=== PATIENT | female | born 1980 | race Caucasian/White ===

== ENCOUNTER → 2017-08-15 | Outpatient (CLI) | payer SELFPAY ==
[2017-08-15 15:46] LABS: HCG, SERUM QUANTITATIVE 15 MIU/ML
== END ==
LOC: M LAB 14:19
DX: N91.2 Amenorrhea, unspecified (principal)
CPT/HCPCS: 84702

== ENCOUNTER → 2017-08-23 | Outpatient (CLI) | payer SELFPAY ==
[2017-08-23 12:09] LABS: HEMATOCRIT 37.6 % (36.0-47.0); HEMOGLOBIN 12.1 g/dl (12.0-15.5); MEAN CORPUSCULAR HEMOGLOBIN 27.6 pg (27.0-33.0); MEAN CORPUSCULAR HGB CONC 32.2 g/dl (32.0-36.5); MEAN CORPUSCULAR VOLUME 85.6 fl (80.0-96.0); PLATELET COUNT, AUTOMATED 349 10^3/uL (150-450); RED BLOOD COUNT 4.39 10^6/uL (4.00-5.40); RED CELL DISTRIBUTION WIDTH 14.2 % (11.5-14.5); WHITE BLOOD COUNT 9.8 10^3/uL (4.0-10.0)
[2017-08-23 12:11] LABS: APPEARANCE, URINE CLEAR (CLEAR); BACTERIA, URINE AUTO NEGATIVE (NEGATIVE); BILIRUBIN, URINE AUTO NEGATIVE (NEGATIVE); BLOOD, URINE BLOOD NEGATIVE (NEGATIVE); COLOR, URINE STRAW (YELLOW); GLUCOSE, URINE (UA) AUTO NEGATIVE (NEGATIVE); KETONE, URINE AUTO NEGATIVE (NEGATIVE); LEUKOCYTE ESTERASE, URINE AUTO NEGATIVE (NEGATIVE); NITRITE, URINE AUTO NEGATIVE (NEGATIVE); PROTEIN, URINE AUTO NEGATIVE (NEGATIVE); RBC, URINE AUTO 2 /HPF (0-3); SPECIFIC GRAVITY URINE AUTO 1.003 (1.002-1.035); SQUAMOUS EPITHELIAL CELL UR AU 1 /HPF (0-6); UROBILINOGEN, URINE AUTO 0.2 mg/dL (0.0-2.0); WBC, URINE AUTO 2 /HPF (0-3)
[2017-08-23 12:27] LABS: PROGESTERONE 19.9 NG/ML
[2017-08-23 12:37] LABS: AMPHETAMINES LEVEL URINE NEGATIVE (NEGATIVE); BARBITURATES URINE NEGATIVE (NEGATIVE); BENZODIAZEPINES URINE NEGATIVE (NEGATIVE); CANNABINOIDS URINE NEGATIVE (NEGATIVE); COCAINE METABOLITE URINE NEGATIVE (NEGATIVE); METHADONE URINE NEGATIVE (NEGATIVE); OPIATES URINE NEGATIVE (NEGATIVE); PHENCYCLIDINE URINE NEGATIVE (NEGATIVE)
[2017-08-24 10:53] LABS: RUBELLA IgG QUALITATIVE IMMUNE (IMMUNE)
[2017-08-24 10:59] LABS: HEPATITIS B SURFACE ANTIGEN NEGATIVE (NEGATIVE)
[2017-08-24 11:22] LABS: HIV 1&2 SCREEN CENTAUR NEGATIVE (NEGATIVE)
[2017-08-26 00:10] LABS: HERPES ZOSTER, VARICELLA IgG 2568 index (Immune >165)
[2017-08-26 00:10] LABS: LEAD BLOOD ADULT <1 ug/dL (0-19)
== END ==
LOC: M LAB 10:46
DX: Z32.01 Encounter for pregnancy test, result positive (principal)
CPT/HCPCS: 83655

== ENCOUNTER → 2017-09-08 | Outpatient (REF) | payer SELFPAY, OTHER ==
[2017-09-08 18:09] LABS: CHLAMYDIA DNA AMPLIFICATION NEGATIVE (NEGATIVE); GC DNA AMPLIFICATION NEGATIVE (NEGATIVE)
== END ==
LOC: M SFHCLERA 10:10
DX: R30.0 Dysuria (principal)

== ENCOUNTER → 2021-06-26 | Outpatient (CLI) | payer OTHER ==
[~2021-06-26] MED LIST: CALCTAB93 PO; IRONTAB3 PO; MAGNESIUM PO; OMEGA 3 PO; PRENTAB29 PO; ZINCLOZ9 PO
== END ==
LOC: M WHC 15:14
PROVIDERS: ATTEND Advanced Practice Midwife
DX: O09.529 Supervision of elderly multigravida, unspecified trimester (principal); Z53.9 Procedure and treatment not carried out, unspecified reason

== ENCOUNTER → 2021-07-07 | Outpatient (CLI) | payer SELFPAY | LOC: M WHC 14:21 | PROVIDERS: ATTEND Advanced Practice Midwife | DX: O09.529 Supervision of elderly multigravida, unspecified trimester (principal); Z3A.20 20 weeks gestation of pregnancy ==

== ENCOUNTER → 2021-07-09 | Outpatient (CLI) | payer SELFPAY ==
[2021-07-09 15:34] LABS: BASO % 0.2 % (0.0-1.0); EOS # 0.3 10^3/uL (0.0-0.5); EOS % 2.8 % (0.0-3.0); HEMATOCRIT 33.4 % (36.0-47.0); HEMOGLOBIN 10.8 g/dl (12.0-15.5); LYMPH # 1.6 10^3/uL (1.5-5.0); LYMPH % 14.7 % (24.0-44.0); MEAN CORPUSCULAR HEMOGLOBIN 28.2 pg (27.0-33.0); MEAN CORPUSCULAR HGB CONC 32.3 g/dl (32.0-36.5); MEAN CORPUSCULAR VOLUME 87.2 fl (80.0-96.0); MONO # 0.4 10^3/uL (0.0-0.8); MONO % 3.3 % (2.0-8.0); NEUTROPHILS # 8.6 10^3/uL (1.5-8.5); NEUTROPHILS % 78.5 % (36.0-66.0); PLATELET COUNT, AUTOMATED 247 10^3/uL (150-450); RED BLOOD COUNT 3.83 10^6/uL (4.00-5.40)
[2021-07-09 15:59] LABS: ALT/SGPT 29 U/L (12-78); BILIRUBIN,TOTAL 0.3 MG/DL (0.2-1.0); CREATININE FOR GFR 0.69 MG/DL (0.55-1.30); CREATININE,RANDOM URINE 20.9 MG/DL; GLOMERULAR FILTRATION RATE > 60.0 (>58); GLUCOSE CHALLENGE TEST 1 HOUR 99 MG/DL (LESS THAN 140); LDH LACTATE DEHYDROGENASE 153 U/L (84-246); TOTAL PROTEIN,RANDOM URINE 6.3 MG/DL (0.0-12.0); URIC ACID 4.4 MG/DL (2.6-6.0)
[2021-07-09 16:48] LABS: HEPATITIS C VIRUS ABY INDEX 0.1 INDEX (<0.8)
[2021-07-09 16:49] LABS: HIV 1&2 SCREEN CENTAUR NEGATIVE (NEGATIVE)
[2021-07-09 16:52] LABS: GC DNA AMPLIFICATION NEGATIVE (NEGATIVE)
== END ==
LOC: M PLALAB 09:38
PROVIDERS: ATTEND Advanced Practice Midwife
DX: O09.529 Supervision of elderly multigravida, unspecified trimester (principal); Z3A.00 Weeks of gestation of pregnancy not specified; O10.919 Unspecified pre-existing hypertension complicating pregnancy, unspecified trimester; O99.280 Endocrine, nutritional and metabolic diseases complicating pregnancy, unspecified trimester; E28.2 Polycystic ovarian syndrome

== ENCOUNTER → 2021-08-18 | Outpatient (CLI) | payer SELFPAY | LOC: M WHC 10:48 | PROVIDERS: ATTEND Specialist | DX: Z34.82 Encounter for supervision of other normal pregnancy, second trimester (principal); Z3A.26 26 weeks gestation of pregnancy; Z36.2 Encounter for other antenatal screening follow-up ==

== ENCOUNTER → 2021-08-27 | Outpatient (CLI) | payer SELFPAY ==
[2021-08-27 15:12] LABS: HEMOGLOBIN 10.5 g/dl (12.0-15.5); MEAN CORPUSCULAR HEMOGLOBIN 27.8 pg (27.0-33.0); MEAN CORPUSCULAR HGB CONC 31.8 g/dl (32.0-36.5); MEAN CORPUSCULAR VOLUME 87.3 fl (80.0-96.0); PLATELET COUNT, AUTOMATED 270 10^3/uL (150-450); RED BLOOD COUNT 3.78 10^6/uL (4.00-5.40)
[2021-08-27 16:42] LABS: GC DNA AMPLIFICATION NEGATIVE (NEGATIVE)
== END ==
LOC: M PLALAB 12:06
PROVIDERS: ATTEND Specialist
DX: O10.912 Unspecified pre-existing hypertension complicating pregnancy, second trimester (principal); O09.529 Supervision of elderly multigravida, unspecified trimester; Z3A.00 Weeks of gestation of pregnancy not specified

== ENCOUNTER → 2021-10-20 | Outpatient (REF) | payer OTHER ==
[~2021-10-20] MED LIST changes: +ECOT81TA5 PO; +LABE200T5 PO; +METF-817 PO; +PREN1TAB18 PO
== END ==
LOC: M PLALAB 14:36
PROVIDERS: ATTEND Specialist
DX: O10.913 Unspecified pre-existing hypertension complicating pregnancy, third trimester (principal); Z36.85 Encounter for antenatal screening for Streptococcus B

== ENCOUNTER → 2021-10-30 | Outpatient (CLI) | payer SELFPAY | LOC: M RAD 15:27 | PROVIDERS: ATTEND Specialist | DX: Z01.810 Encounter for preprocedural cardiovascular examination (principal) ==

== ENCOUNTER → 2021-11-01 | Outpatient (CLI) | payer SELFPAY | LOC: M LABSMTC 10:52 | PROVIDERS: ATTEND Anesthesiology | DX: Z01.818 Encounter for other preprocedural examination (principal); Z11.52 Encounter for screening for COVID-19 ==

== ENCOUNTER 2021-11-09 03:31 | Emergency (ER) | payer SELFPAY ==
[~2021-11-09] VITALS: Ht 175.3 cm; Wt 150.0 kg
[~2021-11-09 03:31] MED LIST changes: +IBUP80TA PO; +OXYC1TAB23 PO
[2021-11-09] MEDS ORDERED: ACET-897 PO (03:42)
[2021-11-09] MEDS ORDERED: METF-838 PO (03:42)
[2021-11-09] MEDS ORDERED: LIDOCAINE 1% MDV 20ML VIAL As Ordered ONE (04:49)
[2021-11-09] MEDS ORDERED: LIDOCAINE 1% MDV 20ML VIAL INJ ONE (04:55)
[2021-11-09] MEDS ORDERED: AMOX875T2 PO (06:06)
[2021-11-09] MEDS ORDERED: PERC5TAB12 PO (06:06)
[2021-11-09] MEDS ORDERED: AUGMENTIN 875 MG TAB PO ONE (06:10)
[2021-11-09 06:21] VITALS: BP 142/92
== END 2021-11-09 06:37 | disposition home or self-care (01) ==
LOC: M ED 03:31
DX: O90.0 Disruption of cesarean delivery wound (principal); Z48.817 Encounter for surgical aftercare following surgery on the skin and subcutaneous tissue; E11.9 Type 2 diabetes mellitus without complications; I10 Essential (primary) hypertension; J45.909 Unspecified asthma, uncomplicated; Z79.899 Other long term (current) drug therapy; Z91.89 Other specified personal risk factors, not elsewhere classified

== ENCOUNTER 2022-02-09 09:07 | Observation (INO) | payer SELFPAY ==
[~2022-02-09] VITALS: Ht 175.3 cm; Wt 148.7 kg
[~2022-02-09 09:07] MED LIST changes: +ACET-897 PO; +AMOX875T2 PO; +METF-838 PO; +PERC5TAB12 PO
[2022-02-09] MEDS ORDERED: LR 1,000 ML IV SCH ×2 (11:20→15:10)
[2022-02-09 12:30] VITALS: BP 142/77
[2022-02-09] MEDS ORDERED: LIDOCAINE 1% SDV 30ML VIAL As Ordered ONE (12:41)
[2022-02-09 13:01] LABS: BASO % 0.4 % (0.0-1.0); EOS # 0.4 10^3/uL (0.0-0.5); EOS % 3.6 % (0.0-3.0); HEMATOCRIT 39.5 % (36.0-47.0); HEMOGLOBIN 12.5 g/dl (12.0-15.5); LYMPH # 1.9 10^3/uL (1.5-5.0); LYMPH % 16.5 % (24.0-44.0); MEAN CORPUSCULAR HEMOGLOBIN 27.3 pg (27.0-33.0); MEAN CORPUSCULAR HGB CONC 31.6 g/dl (32.0-36.5); MEAN CORPUSCULAR VOLUME 86.2 fl (80.0-96.0); MONO # 0.6 10^3/uL (0.0-0.8); NEUTROPHILS # 8.4 10^3/uL (1.5-8.5); NEUTROPHILS % 74.2 % (36.0-66.0); PLATELET COUNT, AUTOMATED 300 10^3/uL (150-450); RED BLOOD COUNT 4.58 10^6/uL (4.00-5.40); WHITE BLOOD COUNT 11.3 10^3/uL (4.0-10.0)
[2022-02-09] MEDS ORDERED: LIDOCAINE 2% 100MG/5ML SDV (FOR ANES.) As Ordered ONE (13:04)
[2022-02-09] MEDS ORDERED: MIDAZOLAM INJ 2MG/2ML VIAL As Ordered ONE (13:04)
[2022-02-09] MEDS ORDERED: propofoL 200 MG/20 ML VIAL As Ordered ONE ×2 (13:04→14:42)
[2022-02-09] MEDS ORDERED: fentaNYL 100 MCG/2 ML INJECTION As Ordered ONE ×2 (13:04→15:08)
[2022-02-09] MEDS ORDERED: PRENTAB77 PO (13:07)
[2022-02-09] MEDS ORDERED: VITA200C39 PO (13:07)
[2022-02-09] MEDS ORDERED: HOME MED LIST COMPLETE! XX SCH (13:10)
[2022-02-09] MEDS ORDERED: CHLOROPROCAINE PRES. FREE 3% 20ML VIAL As Ordered ONE (13:17)
[2022-02-09 13:19] LABS: ALBUMIN 3.8 G/DL (3.2-5.2); ALKALINE PHOSPHATASE 85 U/L (46-116); ALT/SGPT 53 U/L (7.0-40); AST/SGOT 35 U/L (<34); BILIRUBIN,TOTAL 0.5 MG/DL (0.3-1.2); BLOOD UREA NITROGEN 16 MG/DL (9-23); CALCIUM LEVEL 9.8 MG/DL (8.5-10.1); CARBON DIOXIDE LEVEL 28 MMOL/L (20-31); CHLORIDE LEVEL 103 MMOL/L (98-107); CREATININE FOR GFR 0.77 MG/DL (0.55-1.30); GLOMERULAR FILTRATION RATE > 60.0 (>58); GLUCOSE, FASTING 93 MG/DL (60-100); POTASSIUM SERUM 4.2 MMOL/L (3.5-5.1); SODIUM LEVEL 139 MMOL/L (136-145); TOTAL PROTEIN 7.6 G/DL (5.7-8.2)
[2022-02-09] MEDS ORDERED: ceFAZolin 1GM VIAL As Ordered ONE (13:47)
[2022-02-09] MEDS: fentaNYL 100 MCG/2 ML INJECTION IV PRN ×2 (15:05→15:10)
[2022-02-09] MEDS ORDERED: KETOROLAC 30 MG/ML 1ML VIAL As Ordered ONE (15:05)
[2022-02-09] MEDS ORDERED: ONDANSETRON 4MG 2ML VIAL IV PRN (15:10)
[2022-02-09 15:50] VITALS: BP 139/65
[2022-02-09 16:20] VITALS: BP 130/64
[2022-02-09] MEDS ORDERED: IBUPROFEN 800 MG TAB PO PRN (16:35)
[2022-02-09] MEDS ORDERED: PERCOCET 5MG/325MG TAB PO PRN (16:35)
[2022-02-09] MEDS ORDERED: OXYC1TAB23 PO (16:36)
[2022-02-09] MEDS ORDERED: IBUP80TA PO (16:36)
[2022-02-09] MEDS ORDERED: ACETAMINOPHEN 1000MG 100ML IV BAG IV ONE (17:00)
[2022-02-09 17:20] VITALS: BP 128/61
[2022-02-09 18:20] VITALS: BP 120/66
[2022-02-09 19:30] VITALS: BP 135/64
== END 2022-02-09 21:40 | disposition home or self-care (01) ==
LOC: M PED 10:40
PROVIDERS: ADMIT Specialist; ATTEND Specialist
DX: T81.31XA Disruption of external operation (surgical) wound, not elsewhere classified, initial encounter (principal); I10 Essential (primary) hypertension; Z79.84 Long term (current) use of oral hypoglycemic drugs; Z79.2 Long term (current) use of antibiotics
CPT/HCPCS: 20102; 36415; 80053; 85025; 86850; 86900; 86901; 87635; 96360; 96361; J0131; J0690; J2250; J2400; J3010

== ENCOUNTER → 2023-07-06 | Outpatient (CLI) | payer SELFPAY ==
[~2023-07-06] MED LIST changes: +PRENTAB77 PO; +VITA200C39 PO
== END ==
LOC: M PLAIMG 14:02
PROVIDERS: ATTEND Surgery
DX: K76.0 Fatty (change of) liver, not elsewhere classified (principal); R16.2 Hepatomegaly with splenomegaly, not elsewhere classified; R10.31 Right lower quadrant pain